=== PATIENT | male | born 1990 | race Caucasian/White ===

== ENCOUNTER 2019-07-02 12:55 | Emergency (ER) | payer BC, OTHER ==
[2019-07-02] MEDS ORDERED: Diphtheria,Pertussis(Acell),Tetanus Vaccine 0.5 ML Syringe IM ONE (13:44)
[2019-07-02] MEDS ORDERED: Lidocaine 1% 10 ML MDV INJECT ONE (13:44)
--- NOTE | 2019-07-02 13:58 | EDM.PDOC ---
ED HPI GENERAL MEDICAL PROBLEM - General Chief Complaint: Laceration Stated Complaint: R FINGER LAC Time Seen by Provider: 07/02/19 13:06 Source of Information: Reports: Patient, RN Notes Reviewed History Limitations: Reports: No Limitations - History of Present Illness INITIAL COMMENTS - FREE TEXT/NARRATIVE: Patient is a 29-year-old male who presents to the ED for the evaluation of a finger laceration. The patient states this is on his right ring finger. The patient was hunting this morning and ended up inadvertently cutting himself with his hunting knife. This resulted in a 3 cm vertical laceration to the dorsum of the right ring finger. Patient notes he is left-hand dominant, he is not sure of his last tetanus booster. He still has feeling to his finger distal to the injury, and is able to flex and extend his finger appropriately. Right Finger-Ring Pain Score (Numeric/FACES): 3 - Related Data Allergies Allergy/AdvReac Type Severity Reaction Status Date / Time No Known Allergies Allergy Verified 07/02/19 13:08 Home Meds: Home Meds traZODone HCl [Trazodone HCl] 50 mg PO DAILY 07/02/19 [History] Past Medical History - Past Surgical History Musculoskeletal Surgical History: Reports: Arthroscopic Procedure Social & Family History - Tobacco Use Smoking Status *Q: Current Every Day Smoker Years of Tobacco use: 15 Packs/Tins Daily: 0.5 - Caffeine Use Caffeine Use: Reports: Coffee, Tea - Recreational Drug Use Recreational Drug Use: No ED ROS GENERAL - Review of Systems Review Of Systems: ROS reveals no pertinent complaints other than HPI. Skin: Reports: Wound (3cm vertical lac to dorsum of R ring finger btw DIP and PIP) Neurological: Denies: Numbness, Tingling ED EXAM, SKIN/RASH Exam: See Below Exam Limited By: No Limitations General Appearance: Alert, WD/WN, No Apparent Distress Respiratory/Chest: No Respiratory Distress, Lungs Clear, Normal Breath Sounds, No Accessory Muscle Use, Chest Non-Tender Cardiovascular: Normal Peripheral Pulses, Regular Rate, Rhythm, No Murmur Peripheral Pulses: 3+: Radial (L), Radial (R) Extremities: Normal Inspection (with exception of laceration), Normal Range of Motion, Normal Capillary Refill Neurological: Alert, Oriented, Normal Cognition, No Motor/Sensory Deficits Psychiatric: Normal Affect, Normal Mood Skin: Warm, Dry, Normal Color, No Rash, Wound/Incision (3 cm linear vertical laceration to the dorsum of the right fourth digit, this is between the DIP and PIP joints.) ED SKIN PROCEDURES - Laceration/Wound Repair Right Midline Dorsal Digit - 4th (Ring) Appearance: Superficial, Linear, Clean Distal NVT: Neuro & Vascular Intact, No Tendon Injury Anesthetic Type: Local Local Anesthesia - Lidocaine (Xylocaine): 1% Plain Local Anesthetic Volume: 5cc Saline Irrigation (cc's): 250 Exploration/Debridement/Repair: Wound Explored, In a Bloodless Field, Explored to Base, No Foreign Material Found Closed with: Sutures Lac/Wound length In cm: 3 Suture Size: 4-0 # of Sutures: 8 Suture Type: Prolene Sterile Dressing Applied: Nurse Tetanus Status Addressed: Yes Complications: No Progress/Comments: The wound will be dressed with bacitracin, and a pressure type bandage along with an aluminum foam type finger board splint so that the patient is not flexing and extending his finger which could threaten the viability of the sutures. Course - Vital Signs Last Recorded V/S: Last Vital Signs Temp 98.5 F 07/02/19 13:12 Pulse 66 07/02/19 13:12 Resp 20 07/02/19 13:12 BP 120/82 07/02/19 13:12 Pulse Ox 94 L 07/02/19 13:12 - Orders/Labs/Meds Orders: Active Orders 24 hr Category Date Time Status Vaccines to be Administered [RC] PER UNIT ROUTINE Care 07/02/19 13:44 Active Meds: Medications Discontinued Medications Generic Name Dose Route Start Last Admin Trade Name Stephani PRN Reason Stop Dose Admin Diphtheria/Tetanus/Acell Pertussis 0.5 ml 07/02/19 13:44 07/02/19 13:57 Adacel IM 07/02/19 13:45 0.5 ml .ONCE ONE Administration Lidocaine HCl 10 ml 07/02/19 13:44 07/02/19 14:02 Xylocaine 1% INJECT 07/02/19 13:45 10 ml ONETIME ONE Administration Departure - Departure Time of Disposition: 14:46 Disposition: Home, Self-Care 01 Condition: Fair Clinical Impression: Laceration of finger Qualifiers: Encounter type: initial encounter Finger: ring finger Damage to nail status: without damage Foreign body presence: without foreign body Laterality: right Qualified Code(s): S61.214A - Laceration without foreign body of right ring finger without damage to nail, initial encounter - Discharge Information *PRESCRIPTION DRUG MONITORING PROGRAM REVIEWED*: No *COPY OF PRESCRIPTION DRUG MONITORING REPORT IN PATIENT BEKAH: No Instructions: Stitches, Fidencio, or Adhesive Wound Closure, [id number] Referrals: Irving Mitchell Jr, MD [Primary Care Provider] - Forms: ED Department Discharge Additional Instructions: You have been evaluated in the ED for your laceration. Sutures will need to stay in for 14 days. (07/16/19) You may return to the ED or clinic for removal. Please keep this area clean and dry, you may cleanse with regular soap and water. No vigorous scrubbing. Please return to ED if your symptoms change or worsen. - My Orders Last 24 Hours: My Active Orders 07/02/19 13:44 Vaccines to be Administered [RC] PER UNIT ROUTINE - Assessment/Plan Last 24 Hours: My Active Orders 07/02/19 13:44 Vaccines to be Administered [RC] PER UNIT ROUTINE
== END 2019-07-02 15:00 | disposition home or self-care (01) ==
LOC: JD.ED 12:55
DX: S61.214A Laceration without foreign body of right ring finger without damage to nail, initial encounter (principal); F17.200 Nicotine dependence, unspecified, uncomplicated; W26.0XXA Contact with knife, initial encounter; Y93.89 Activity, other specified
CPT/HCPCS: 12002; 90471; 90700; 99283; J2001